=== PATIENT | female | born 1990 | race Caucasian/White ===

== ENCOUNTER → 2016-07-31 08:33 | Outpatient (CLI) | payer BC ==
--- NOTE | 2016-08-15 08:22 | EMG ---
PATIENT:ROMERO TERAN DATE OF SERVICE: 07/31/16 MEDICAL RECORD: [id number] DATE OF : 89 LOCATION: [facility] ADMISSION DATE: REFERRING PHYSICIAN: JACIEL STEWART MD INTERPRETING PHYSICIAN: GIULIA DUNLAP MD DATE OF SERVICE: 07/31/2016 Electromyographic Report REFERRED BY: Dr. Stewart as an outpatient. DATE OF EXAMINATION: 07/31/2016 ELECTROMYOGRAPHIC DATA: Electromyographic examination is limited to both upper extremities. In the right upper extremity, right median motor stimulation elicits a compound motor action potential with a distal latency of 3.3 milliseconds, peak amplitude of 9 millivolts, and calculated conduction velocity of 40 meters per second. Right ulnar motor stimulation elicits a compound motor action potential with a distal latency of 2.9 milliseconds, peak amplitude of 8 millivolts, and calculated conduction velocity of 56 meters per second. Right ulnar motor stimulation across the elbow fails to elicit evidence of conduction block at this level. Antidromic right median sensory stimulation elicits a response with a distal latency of 5.2 milliseconds, amplitude of 13 microvolts and calculated conduction velocity of 51 meters per second. Antidromic right ulnar sensory stimulation elicits a response with a distal latency of 2.9 milliseconds, amplitude of 9 microvolts and calculated conduction velocity of 68 meters per second. The right median F wave has a latency of 29 milliseconds. In the left upper extremity, left median motor stimulation elicits a compound motor action potential with a distal latency of 3.5 milliseconds, peak amplitude of 11 millivolts and calculated conduction velocity of 40 meters per second. Left ulnar motor stimulation elicits a compound motor action potential with a distal latency of 2.8 milliseconds, peak amplitude of 6 millivolts, and calculated conduction velocity of 55 meters per second. Left ulnar motor stimulation across the elbow fails to elicit evidence of conduction block at this level. Antidromic left median sensory stimulation elicits a response with a distal latency of 4.3 milliseconds, amplitude of 20 microvolts and calculated conduction velocity of 56 meters per second. Antidromic left ulnar sensory stimulation elicits a response with a distal latency of 3.1 milliseconds, amplitude of 29 microvolts and calculated conduction velocity of 62 meters per second. The left median F wave has a latency of 29 milliseconds. Needle electrode examination is limited to both upper extremities as well. Muscles interrogated include the abductor pollicis brevis, first dorsal interosseous, abductor digiti minimi, pronator teres, biceps brachii, triceps and deltoid. There is no abnormality of insertional activity and no abnormal spontaneous activity is seen in all muscles interrogated. Motor unit potential morphology and the pattern of motor unit potential firing and recruitment is normal in all muscles sampled. 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 There is no electrical evidence of a superimposed cervical radiculopathy or other lesion of the lower motor neuron in the upper extremities at this time. There is no evidence of active denervation. TRANSINT:[id number] Voice Confirmation ID: [id number] DOCUMENT ID: [id number] GIULIA DUNLAP MD at 0822 CC: [id number] DICTATION DATE: 08/01/16817 [place] OPERATOR: 08/02/16 0044 DEP CLI 07/31/16 [facility] [address] [place] [address]
== END | disposition home or self-care (01) ==
LOC: D.CN 08:33
DX: R20.0 Anesthesia of skin (principal)